=== PATIENT | male | born 1985 | race Caucasian/White ===

== ENCOUNTER 2016-12-25 10:32 | Observation (INO) ==
[2016-12-25] MEDS ORDERED: HYDROmorphone 2 MG/ML SYRINGE IV PRN (12:07)
[2016-12-25 12:59] LABS: Mean Cell Volume 89.8 fL (80.0-100.0); Mean Corpuscular Hemoglobin 30.5 pg (26.0-34.0); Platelet Count 204 K/mcL (140-440); RBC 4.85 M/mcL (4.50-5.90); Red Cell Distribution Width 13.4 % (11.5-14.5)
[2016-12-25] MEDS: 0.9 % SODIUM CHLORIDE 1,000 ML IV SCH ×2 (13:02→20:28)
[2016-12-25 13:24] LABS: ALT/SGPT 14 U/l (0-40); Albumin 4.2 gm/dL (3.2-5.2); Albumin/Globulin Ratio 2.3 (1.0-2.3); Alkaline Phosphatase 39 U/L (39-117); Bilirubin,Direct < 0.2 mg/dL (0.0-0.3); Blood Urea Nitrogen 7 mg/dl (6-20); C-Reactive Protein < 0.3 mg/dl (0.0-0.8); Gamma Glutamyl Transpeptidase 16 U/L (8-61); Magnesium 1.9 mg/dL (1.6-2.5); Uric Acid 3.8 mg/dL (2.5-8.0)
[2016-12-25 13:37] LABS: Lymphocytes % 33 % (15-49); Monocytes % (Manual) 3 % (1-12); Platelet Estimate NORMAL (NORMAL); RBC Morphology NORMAL (NORMAL); Segmented Neutrophils % 62 % (38-78)
[2016-12-25] MEDS: 0.9 % SODIUM CHLORIDE 10 ML SYRINGE IV SCH ×2 (15:53→20:33)
[2016-12-25] MEDS: PANTOPRAZOLE 40 MG VIAL IV SCH (16:27)
[2016-12-25] MEDS: METOCLOPRAMIDE 10 MG/2 ML VIAL IV SCH ×2 (18:59→23:00)
[2016-12-25] MEDS: SUCRALFATE 1 GM/10 ML ORAL.SUSP PO SCH ×2 (18:59→23:00)
[2016-12-26] MEDS: 0.9 % SODIUM CHLORIDE 1,000 ML IV SCH ×4 (02:38→15:08)
[2016-12-26] MEDS: SUCRALFATE 1 GM/10 ML ORAL.SUSP PO SCH ×3 (05:55→17:57)
[2016-12-26] MEDS: METOCLOPRAMIDE 10 MG/2 ML VIAL IV SCH ×3 (05:55→17:57)
[2016-12-26] MEDS: 0.9 % SODIUM CHLORIDE 10 ML SYRINGE IV SCH ×3 (05:56→21:11)
[2016-12-26] MEDS ORDERED: MIDAZOLAM 5 MG/5 ML VIAL IV ONE (07:07)
[2016-12-26] MEDS ORDERED: FLUMAZENIL 0.1 MG/ML ML IV PRN (07:22)
[2016-12-26] MEDS ORDERED: METOCLOPRAMIDE 10 MG/2 ML VIAL IV PRN (07:22)
[2016-12-26] MEDS ORDERED: ePHEDrine 50 MG/ML AMPUL IV PRN (07:22)
[2016-12-26] MEDS ORDERED: IPRATROPIUM/ALBUTEROL 3 ML AMPUL.NEB NEB PRN (07:22)
[2016-12-26] MEDS ORDERED: NALOXONE HCL 0.4 MG/ML VIAL IV PRN (07:22)
[2016-12-26] MEDS ORDERED: ONDANSETRON 4 MG/2 ML VIAL IV PRN (07:22)
[2016-12-26] MEDS ORDERED: LACTATED RINGERS 250 ML IV PRN (07:22)
[2016-12-26] MEDS ORDERED: fentaNYL 100 MCG/2 ML VIAL IV PRN (07:22)
[2016-12-26] MEDS ORDERED: diphenhydrAMINE 50 MG/ML VIAL IV PRN (07:22)
--- NOTE | 2016-12-26 07:27 | Brief Operative Note ---
Date of procedure: 12/26/16 Pre-op diagnosis: recurrent nausea and vomiting Post-op diagnosis: other (acute gastritis with gastroparesis; esophageal monilial inflammation) Procedure: egd with biopsies and jamshid-test Grafts/Implants: No Anesthesia: MAC Findings: extreme lack of peristalsis of stomach with acute inflammation and erosions of stomach ;mild patch monilial esophagitis Complications: none Surgeon: Edy Rosen Estimated blood loss (cc): 0 Specimens Removed/Pathology: other (jamshid-test and gastric antral biopsies) Condition: stable Disposition: PACU
[2016-12-26] MEDS ORDERED: LACTATED RINGERS 1,000 ML IV SCH (07:30)
[2016-12-26] MEDS: PANTOPRAZOLE 40 MG VIAL IV SCH ×2 (08:09→16:39)
[2016-12-26] MEDS ORDERED: ENOXAPARIN 40 MG/0.4 ML SYRINGE SQ SCH (09:00)
[2016-12-26] MEDS: ENOXAPARIN 40 MG/0.4 ML SYRINGE SQ SCH (09:14)
[2016-12-26] MEDS: HYDROmorphone 2 MG/ML SYRINGE IV PRN ×2 (10:41→20:36)
[2016-12-27] MEDS: METOCLOPRAMIDE 10 MG/2 ML VIAL IV SCH ×3 (00:10→14:09)
[2016-12-27] MEDS: SUCRALFATE 1 GM/10 ML ORAL.SUSP PO SCH ×3 (00:10→14:09)
[2016-12-27] MEDS: 0.9 % SODIUM CHLORIDE 1,000 ML IV SCH ×3 (01:44→09:01)
[2016-12-27] MEDS: 0.9 % SODIUM CHLORIDE 10 ML SYRINGE IV SCH ×2 (05:52→14:10)
[2016-12-27] MEDS: PANTOPRAZOLE 40 MG VIAL IV SCH (08:04)
[2016-12-27] MEDS: ENOXAPARIN 40 MG/0.4 ML SYRINGE SQ SCH (10:32)
--- NOTE | 2016-12-27 13:27 | General Surgery Progress Note ---
Subjective Patient reports: feels better, pain is less, tolerating a regular diet, flatus, bowel movement, afebrile Narrative: Note initiated : 12/27/16 at 1:24 pm Service Date, if different from initiated Date: [] Patient: Pranav Gutierrez a 31 y/o M admitted on 12/25/16 for Intractable Nausea and Vomiting . Chief Complaint: [patient is progressing well. He has no nausea or vomiting. He has tolerated regular diet without difficulty. He has had regular bowel movements. He still has some abdominal pain but that is a chronic issue. He is stable for discharge home on his baseline medication regimen.] Objective Temp Pulse Resp BP Pulse Ox 99.6 F 60 20 117/76 98 12/27/16 12:00 12/27/16 12:00 12/27/16 12:00 12/27/16 12:00 12/27/16 12:00 - Additional Data Intake & Output - Last 24 hours: Intake & Output 12/25/16 12/26/16 12/27/16 12/28/16 05:59 05:59 05:59 05:59 Intake Total 2715 / 2715 3010 / 3010 Output Total 700 / 700 3275 / 3275 Balance 2014 -265 / -265 Weight 138 lb 138 lb 8 oz - General physical appearance no distress - Eyes PERRL - ENT no congestion - Neck no venous distension - Respiratory clear to auscultation - Cardiovascular Cardiovascular exam: Present: normal rate and rhythm, RRR, +S1, +S2 - Abdomen tender (epigastric tenderness) - Integumentary no rash, no growths, no abnormal pigmentation - Neurologic normal coordination, normal sensation - Musculoskeletal normal gait, normal posture - Psychiatric oriented to time - Labs 12/25/16 12:22 12/25/16 12:22 Assessment and Plan (1) Acute gastritis Status: Acute Assessment and plan: Will follow-up H pylori as an outpatient stable for discharge home Current Visit: Yes (2) Nausea and vomiting Status: Acute Assessment and plan: resume all home medications Current Visit: No (3) Gastroparesis Status: Chronic Current Visit: No - Time Spent With Patient Total time spent is greater than 50% in coordination of care (as documented) at patient's floor/unit and/or counseling patient: less than 15 minutes
--- NOTE | 2016-12-27 13:34 | Discharge Summary ---
Providers - Providers Patient information: Note initiated : 12/27/16 at 1:30 pm Service Date, if different from initiated Date: [] Patient: Pranav Gutierrez 31 y/o M admitted on 12/25/16 for Intractable Nausea and Vomiting . Chief Complaint: [] Date of admission: 12/25/16 Discharge date: 12/27/16 Attending physician: Edy Rosen Hospitalization Hospital course: Patient presented with a five-day history of abdominal pain with recurrent nausea and vomiting. He had 3 evaluations in the emergency room during this time. He continued to have nausea and vomiting despite treatment and could not keep down his medications. He was admitted for IV therapy including his IV medications and for upper endoscopy. After hydration and receiving IV Reglan and Zofran and pantoprazole he was much improved. He underwent upper endoscopy which showed that he had persistent gastroparesis but his stomach was clear of bezoar. He did have erosive gastritis in the antrum with evidence of superficial active bleeding. He was treated for another 24 hours and is now stable. He states that he has mild epigastric pain but he is able to tolerate a regula diet. He will be discharged on te same medications and he is advised to not run out of his medications. He will be followed in the office on an as- need basis. Discharge diagnosis: acute and chronic erosive gastrits Secondary discharge diagnosis: idiopathic gastroparesis Reason for admission: recurrent nausea andvomiting Procedures: upper endoscopy Complications: none Exam Temp Pulse Resp BP Pulse Ox 99.6 F 60 20 117/76 98 12/27/16 12:00 12/27/16 12:00 12/27/16 12:00 12/27/16 12:00 12/27/16 12:00 - General physical appearance well developed, well nourished, no distress - Eyes PERRL, normal ocular movement - ENT normal pinna, normal nares, normal mucosa, no hearing loss, no congestion - Head Head exam IM: Present: atraumatic, normocephalic - Neck no masses, no bruits, trachea midline, no lymphadectomy, no venous distension - Cardiovascular Cardiovascular exam IM: Present: normal rate and rhythm - Respiratory normal expansion, normal respiratory effort, clear to percussion, clear to auscultation - Abdomen Abdomen: Present: soft, tender (mild epigastric t), bowel sounds Hernia: Present: none - Integumentary Present: no rash, no growths, no abnormal pigmentation - Neurologic Present: normal coordination, normal sensation - Musculoskeletal Present: normal gait, normal posture - Psychiatric Present: oriented to time, oriented to person, oriented to place, speech is normal, memory intact Discharge Plan - Patient/Caregiver Discharge Instructions Activity: increase activity as tolerated Diet: Regular Diet Additional Instructions: office follow-up as an outpatient as needed - Follow up Plan Follow up with: Edy Rosen MD [Primary Care Provider] - Disposition: Home, Self-Care Prognosis: Good Rehab Potential: Good I certify that the patient requires SNF services.: No Overall status at discharge: patient is back to baseline Pending Studies Resuscitation Status Full Code Diet Regular Diet Start SatDecember 26 Lunch Enoxaparin Sodium (Lovenox) 40 mg SQ DAILY [facility] Last Admin: 12/27/16 10:32 Dose: Not Given Admin: 12/26/16 09:14 Dose: 40 mg Hydromorphone HCl (Dilaudid) 1 mg IV Q2HP PRN PRN Reason: Pain Last Admin: 12/26/16 20:36 Dose: 1 mg Admin: 12/26/16 10:41 Dose: 1 mg Sodium Chloride (Sodium Chloride 0.9%) 1,000 mls @ 150 mls/hr IV .Q6H40M [facility] Last Admin: 12/27/16 09:01 Dose: Admin: 12/27/16 05:51 Dose: Not Given Admin: 12/27/16 01:44 Dose: 150 mls/hr Infusion: 12/26/16 16:11 Dose: 150 mls/hr Admin: 12/26/16 15:08 Dose: Not Given Admin: 12/26/16 09:30 Dose: 150 mls/hr Metoclopramide HCl (Reglan) 10 mg IV Q6 [facility] Last Admin: 12/27/16 05:51 Dose: 10 mg Admin: 12/27/16 00:10 Dose: 10 mg Admin: 12/26/16 17:57 Dose: 10 mg Admin: 12/26/16 11:48 Dose: 10 mg Pantoprazole Sodium (Protonix) 40 mg IV BIDAC [facility] Last Admin: 12/27/16 08:04 Dose: 40 mg Admin: 12/26/16 16:39 Dose: 40 mg Sodium Chloride (Saline Flush) 10 ml IV Q8 [facility] Last Admin: 12/27/16 05:52 Dose: Not Given Admin: 12/26/16 21:11 Dose: Not Given Admin: 12/26/16 13:12 Dose: Not Given Sucralfate (Carafate) 1 gm PO Q6 [facility] Last Admin: 12/27/16 05:51 Dose: 1 gm Admin: 12/27/16 00:10 Dose: 1 gm Admin: 12/26/16 17:57 Dose: 1 gm Admin: 12/26/16 11:48 Dose: 1 gm Shift Summary 12/27/16 04:19 Shift Summary by Ashley Erazo Patient had EGD performed yesterday that showed acute gastritis and gastroparesis with esophageal inflammation. H. pylori results should return within 24 hours. A&Ox4. VSS. Up ad desirae. Advanced to regular diet and is tolerating well. Denies Nausea. Administered IV Dilaudid 1mg at 2036 for 6/10 abdominal pain. Should discharge home today. Initialized on 12/27/16 04:19 - END OF NOTE
--- NOTE | 2016-12-28 12:39 | Surgical Pathology Report ---
HISTOLOGY SPECIMEN MICROSCOPIC DIAGNOSIS STOMACH, BIOPSY: -- MILD CHRONIC GASTRITIS WITH PATCHY SLIGHT ACTIVITY. (SEE COMMENT) -- ALCIAN YELLOW STAIN NEGATIVE FOR HELICOBACTER PYLORI TYPE ORGANISMS (ADEQUATE TECHNICAL CONTROL). (ACP:zak) COMMENT: The gastric biopsy has mild chronic inflammation with intact surface epithelium and few scattered foci of active inflammation. A chromogranin stain is negative for endocrine cell hyperplasia (adequate technical control). No neoplasia is seen. MICROSCOPIC DESCRIPTION Some of the tests reported here may not have been cleared or approved by the U.S. Food and Drug Administration (FDA). However, the FDA has determined that such clearance or approval is not necessary. Pursuant to the requirements of CLIA, this laboratory has established and verified the accuracy and precision of all tests, and additional information about these tests is available upon request. All technical controls are adequate. CLINICAL HISTORY Intractable nausea and vomiting. GROSS DESCRIPTION Received in formalin labeled gastric biopsy, are two pale pink-vargas tissue fragments 0.4 and 0.7 cm. Totally submitted - one cassette. (STM:[facility]) Electronically Signed by: Heriberto Bourne M.D.
--- NOTE | 2017-01-02 10:39 | Operative Note ---
DATE OF OPERATION: 12/26/2016 PREOPERATIVE DIAGNOSIS: Recurrent nausea and vomiting. POSTOPERATIVE DIAGNOSIS: Acute gastritis with gastroparesis, esophageal monilial infection. PROCEDURE: EGD with biopsies and CLOtest. SURGEON: Edy Rosen MD FINDINGS: Extreme lack of peristalsis of the stomach, acute inflammation and erosion of the distal stomach, mild patchy monilial esophagitis. DESCRIPTION OF PROCEDURE: Under general anesthesia, the patient was turned to the left lateral decubitus position. A timeout procedure was carried out as per protocol. A biteblock was placed. The scope was introduced through the biteblock and into the retropharynx. Upon entering the esophagus, there were thick plaques of white exudate extending down from the upper third of the esophagus down to the GE junction. There were some areas of inflammation. These plaques could be removed but under the plaque there was inflammation suggesting monilial esophagitis. There were tertiary contractions of the esophagus. The GE junction was unremarkable. There was no inflammation. The stomach was maximally insufflated. The proximal stomach was unremarkable except for lack of peristalsis. Distal stomach showed scattered erosions with diffuse inflammation extending down to the pylorus. The pylorus opened appropriately. The first, second, and third portions of the duodenum were normal. There were no . The scope was pulled back. Biopsies of the antral area were taken for CLOtest and for routine biopsy. Air was suctioned from the stomach and the stomach was monitored for about a minute or two. There were no peristaltic waves during this time. The rest of the air was removed. Procedure was terminated. Patient tolerated procedure well. He was allowed to awaken and was transferred to the Post-Anesthetic Care Unit in stable satisfactory condition. LCS:lesia Job ID: [id number] Doc ID: [id number] Edy Rosen M.D.
== END 2016-12-27 14:26 | disposition home or self-care (01) ==
LOC: MEDSUR
PROVIDERS: ADMIT Family Medicine Adult Medicine; ATTEND Family Medicine Adult Medicine

== ENCOUNTER 2017-02-05 10:07 | Observation (INO) ==
[2017-02-05] MEDS ORDERED: PROCHLORPERAZINE 10 MG/2 ML VIAL IV ONE (10:38)
[2017-02-05] MEDS ORDERED: LACTATED RINGERS 1,000 ML IV ONE (10:38)
[2017-02-05] MEDS ORDERED: diphenhydrAMINE 50 MG/ML VIAL IV ONE (10:38)
[2017-02-05] MEDS ORDERED: LORazepam 2 MG/ML VIAL IV ONE (10:45)
--- NOTE | 2017-02-05 11:07 | Emergency Department Note ---
Nausea/Vomiting/Diarrhea HPI - General Chief complaint: Nausea/Vomiting/Diarrhea Stated complaint: Abdominal pain, nausea and vomiting Time Seen by Provider: 02/05/17 10:44 Source: patient Mode of arrival: ambulatory Limitations: no limitations - History of Present Illness HPI Narrative: Patient here for the third day in a row with intractable vomiting and. He does use marijuana on a daily basis. States he tried to drink some fluids this morning and he promptly vomited it. No previous abdominal surgeries, states he has had EGD before in the past and was diagnosed as having gastroparesis. No fevers no chills no chest pain no shortness of breath and no cough no other symptoms. Denies any syncope. No history of any diarrhea and no black tarry stools. MD complaint: nausea, vomiting - Related Data Home Medications Medication Instructions Recorded Confirmed metoclopramide 10 mg tablet 10 mg PO .QACHS tab 01/10/17 02/05/17 omeprazole 20 mg capsule,delayed 20 mg PO QDAY cap 01/10/17 02/05/17 release Previous Rx's Medication Instructions Recorded dicyclomine 10 mg capsule 10 mg PO QID #120 cap 01/10/17 hydrocodone 5 mg-acetaminophen 325 1 tab PO Q4HP PRN #90 tab 01/10/17 mg tablet pantoprazole 40 mg tablet,delayed 40 mg PO QAM #30 tab 01/10/17 release Ondansetron HCl [Zofran ODT] 4 mg SL Q4-6HP PRN #14 tablet 02/04/17 Allergies Allergy/AdvReac Type Severity Reaction Status Date / Time No Known Allergies Allergy Unknown Unknown Verified 02/05/17 10:12 Review of Systems All systems ED: reviewed and negative except as stated. Past Medical History - Past Medical History Source: old records reviewed, nursing notes reviewed Medical history: Reports: other (pancreatitis, gastroparesis, depression,) Surgical history ED: Reports: non-contributory, other (upper endoscopy) Psychiatric history: Reports: depression Family history: Reports: no significant family history - Social History smoking status: Current some day smoker Alcohol use: Reports: None (history of heavy alcohol. Previous up to one year ago) Drug use: Reports: marijuana Physical Exam - General Limitations: no limitations General appearance: alert, in no apparent distress - Head Head exam: atraumatic, normocephalic - Eye Eye exam: Present: normal appearance, PERRL, EOMI. Absent: scleral icterus, conjunctival injection - ENT ENT exam: normal exam, normal oropharynx, mucous membranes moist - Neck Neck exam: Present: normal inspection, full ROM. Absent: tenderness, meningismus, lymphadenopathy, thyromegaly - Chest Chest inspection: Present: normal inspection, symmetric chest wall rise. Absent : tenderness - Respiratory Respiratory exam: Present: normal lung sounds bilaterally. Absent: respiratory distress, wheezes, stridor - Cardiovascular Cardiovascular exam: Present: regular rate, normal rhythm, normal heart sounds - Abdominal Exam Abdominal exam: Present: soft, diminished bowel sounds. Absent: distention, tenderness, guarding - Extremities Exam Extremities exam: Present: normal inspection, full ROM, normal capillary refill. Absent: pedal edema, joint swelling - Back Exam Back exam: Present: normal inspection, full ROM. Absent: tenderness, CVA tenderness (R), CVA tenderness (L) - Neurological Exam Neurological exam: Present: alert, oriented X3, CN II-XII intact - Psychiatric Psychiatric exam: Present: normal affect, normal mood. Absent: suicidal ideation - Skin Skin exam: Present: warm, dry, intact, normal color Course - Reevaluation(s) Reevaluation #1: we tried giving IV fluids, he received a total of 2 L, mul and despite all this he still vomited up Pedialyte. At this point he will be admittadmitted for intractable vomiting, gastroparesis Vital Signs Temperature 99.1 F H 02/05/17 10:07 Pulse Rate 68 02/05/17 10:07 Respiratory Rate 18 02/05/17 10:07 Blood Pressure 128/72 02/05/17 10:07 Pulse Oximetry (%) 98 02/05/17 10:07 Temperature 99.1 F H 02/05/17 10:07 Pulse Rate 93 H 02/05/17 13:34 Respiratory Rate 18 02/05/17 12:39 Blood Pressure 123/86 02/05/17 13:02 Pulse Oximetry (%) 97 02/05/17 13:34 Nausea/Vomiting/Diarrhea - [facility] Narrative Medical decision making narrative: final diagnosis is gastroparesis with intractable vomiting - Lab Data Result diagrams: 02/05/17 10:40 02/05/17 10:40 Lab Results 02/05/17 02/05/17 02/05/17 Range/Units 10:40 10:40 10:49 WBC 12.7 H (4.5-11.0) K/mcL RBC 4.62 (4.50-5.90) M/mcL Hgb 14.0 (13.5-16.5) g/dL Hct 41.4 (41.0-55.0) % MCV 89.6 (80.0-100.0) fL MCH 30.3 (26.0-34.0) pg MCHC 33.9 (31.0-36.0) g/dL RDW 13.6 (11.5-14.5) % Plt Count 176 (140-440) K/mcL MPV 9.3 (7.4-10.4) fL Gran % 80.4 H (38.0-78.0) % Lymph % (Auto) 10.4 L (15.5-49.0) % [place] % (Auto) 8.6 (1.0-12.0) % Eos % (Auto) 0.5 (0.0-7.0) % Baso % (Auto) 0.1 (0.0-2.0) % Gran # 10.2 H (1.8-8.0) K/mcL Lymph # (Auto) 1.3 L (1.5-4.8) K/mcL [place] # (Auto) 1.1 H (0.1-0.9) K/mcL Eos # (Auto) 0.1 (0.0-0.7) K/mcL Baso # (Auto) 0 (0.0-0.3) K/mcL ESR 4 (0-15) mm/hr Sodium 140 (133-145) mmol/L Potassium 3.2 L (3.3-5.1) mmol/L Chloride 99 (96-108) mmol/L Carbon Dioxide 27 (22-30) mmol/L Anion Gap 14.0 (8-16) BUN 7 (6-20) mg/dl Creatinine 0.7 (0.7-1.2) mg/dl GFR Calculation 124 Glucose 115 H (70-105) mg/dL Calcium 9.0 (8.6-10.4) mg/dl Total Bilirubin 0.6 (0.0-1.0) mg/dL AST 16 (0-37) U/l ALT 15 (0-40) U/l Alkaline Phosphatase 42 (39-117) U/L C-Reactive Protein < 0.3 (0.0-0.8) mg/dl Total Protein 6.1 (5.9-8.4) gm/dL Albumin 4.5 (3.2-5.2) gm/dL Globulin 1.6 L (2.2-3.7) gm/dL Albumin/Globulin Ratio 2.8 H (1.0-2.3) Lipase 104 H (7-60) U/L Urine Color Yellow Urine Appearance Hazy Urine pH 8.0 (5.0-9.0) Ur Specific [place] 1.018 (1.000-1.035) Urine Protein 30 A (NEG) mg/dL Urine Glucose (UA) Negative (NEG) mg/dL Urine Ketones 80 A (NEG) mg/dL Urine Occult Blood Neg (<0.03) mg/dL Urine Nitrate Neg (NEG) Urine Bilirubin Neg (NEG) mg/dL Urine Urobilinogen Neg (NEG) mg/dL Ur Leukocyte Esterase Neg (NEG) /uL Urine RBC 1 (0-1) /hpf Urine WBC 2 (0-4) /hpf Ur Squamous Epith Cells 0 (0-4) /hpf Amorphous Crystals Many A (0) /hpf Urine Bacteria 0 (0) /hpf Hyaline Casts 1 (0-2) /lpf Urine Mucus Mod (0) /hpf Ur Culture Indicated? No Disposition Clinical Impression: Intractable nausea and vomiting
[2017-02-05] MEDS ORDERED: PANTOPRAZOLE 40 MG VIAL IV ONE (11:08)
[2017-02-05] MEDS ORDERED: ELECTROLYTE,ORAL 1,000 ML SOLUTION PO ONE ×2 (11:10→11:15)
[2017-02-05 11:21] LABS: Basophils # (Auto) 0 K/mcL (0.0-0.3); Basophils % (Auto) 0.1 % (0.0-2.0); Eosinophils # (Auto) 0.1 K/mcL (0.0-0.7); Eosinophils % (Auto) 0.5 % (0.0-7.0); Granulocytes % (Auto) 80.4 % (38.0-78.0); Lymphocytes # (Auto) 1.3 K/mcL (1.5-4.8); Lymphocytes % (Auto) 10.4 % (15.5-49.0); Mean Cell Volume 89.6 fL (80.0-100.0); Mean Corpuscular HGB Conc 33.9 g/dL (31.0-36.0); Mean Corpuscular Hemoglobin 30.3 pg (26.0-34.0); Monocytes # (Auto) 1.1 K/mcL (0.1-0.9); Monocytes % (Auto) 8.6 % (1.0-12.0); Platelet Count 176 K/mcL (140-440); RBC 4.62 M/mcL (4.50-5.90); Red Cell Distribution Width 13.6 % (11.5-14.5)
[2017-02-05 11:26] LABS: Appearance,Urine HAZY; Bacteria,Urine 0 /hpf (0); Bilirubin,Urine NEG (NEG); Color,Urine YELLOW; Glucose,Urine (UA) NEGATIVE (NEG); Leukocyte Esterase,Urine NEG /uL (NEG); Mucus,Urine MOD /hpf (0); Nitrate,Urine NEG (NEG); Protein,Urine 30 mg/dL (NEG); Specific Gravity,Urine 1.018 (1.000-1.035); Urine Amorphous Crystals MANY /hpf (0); Urine Blood NEG mg/dL (<0.03); Urine Hyaline Cast 1 /lpf (0-2); Urine RBC 1 /hpf (0-1); Urine Squamous Epithelial Cell 0 /hpf (0-4); Urine WBC 2 /hpf (0-4); Urobilinogen,Urine NEG (NEG)
[2017-02-05 11:54] LABS: ALT/SGPT 15 U/l (0-40); Albumin 4.5 gm/dL (3.2-5.2); Albumin/Globulin Ratio 2.8 (1.0-2.3); Alkaline Phosphatase 42 U/L (39-117); Blood Urea Nitrogen 7 mg/dl (6-20); C-Reactive Protein < 0.3 mg/dl (0.0-0.8); Lipase 104 U/L (7-60)
[2017-02-05 12:14] LABS: Erythrocyte Sedimentation Rate 4 mm/hr (0-15)
[2017-02-05] MEDS ORDERED: POTASSIUM CHLORIDE 20 MEQ/15 ML ML PO ONE (12:29)
[2017-02-05] MEDS ORDERED: METOCLOPRAMIDE 10 MG/2 ML VIAL IV ONE (13:31)
--- NOTE | 2017-02-05 14:56 | Internal Med History&Physical ---
Medical - H&P: HPI Patient information: Note initiated : 02/05/17 at 2:48 pm Patient: Pranav Gutierrez 31 y/o M admitted on for Abd Pain, N/V. History of present illness: Mr. Gutierrez is a 31 year old M This patient has a history of gastroparesis and significant gastritis. He has been admitted several times for intractable nausea and vomiting. He tells me that the first severe episode he recalls was September last year. This week, he has had persistent nausea and vomiting for the last several days. He has come to the emergency room 4 times, and just has not been able to control his symptoms. He also reports abdominal pain which she rates as 8 out of 10. He does have Reglan and Zofran and dicyclomine and Protonix at home, as well as [place], but these did not seem to manage his symptoms. He does admit to smoking about 2 joints per day, which she uses both for recreation and to help with nausea. He has not been able to keep any food down for the last 3 days. When he vomits, mostly bilious fluid comes up. He has not seen any blood. His throat is been a little dry, but no significant pain. He denies fever chills, headaches or dizziness, new or ear symptoms, swollen glands, chest pain or palpitations, shortness of breath. He has not had a bowel movement in several days, but also has not eaten. He denies diarrhea or bright red blood per rectum, or dysuria. Medical History Abdominal pain (Acute) Acute gastritis (Acute) Gastroparesis (Acute) Pancreatitis ? Depression (Chronic) Chronic tobacco and marijuana use Surgical History No pertinent past surgical history (Chronic) Medication List dicyclomine 10 mg PO QID hydrocodone-acetaminophen 5-325 mg 1 tab PO Q4HP PRN metoclopramide 10 mg PO .QACHS omeprazole 20 mg PO QDAY ondansetron 4 mg SL Q4-6HP PRN pantoprazole 40 mg PO QAMAC Allergies/Adverse Reactions No Known Allergies Allergy Family History Family/Other ? Uncle at age 60+ ? Cancer. Father's health is unknown. His mother had gallbladder surgery. A grandfather had esophageal cancer late in life. Grandfather , at age 60+ Esophageal cancer Other Heart disease Social History The patient smokes about half a pack of cigarettes per day, since the age of 12. He smokes approximately 2 joints of marijuana per day. He previously says he drank fairly heavily, but stopped about 18 months ago. He works in a restaurant. He is currently staying with his aunt. Medical - H&P: Meds Home Medications Medication Instructions Recorded Confirmed Type dicyclomine 10 mg capsule 10 mg PO QID #120 cap 01/10/17 02/05/17 Rx hydrocodone 5 mg-acetaminophen 325 1 tab PO Q4HP PRN #90 tab 01/10/17 02/05/17 Rx mg tablet metoclopramide 10 mg tablet 10 mg PO .QACHS tab 01/10/17 02/05/17 History omeprazole 20 mg capsule,delayed 20 mg PO QDAY cap 01/10/17 02/05/17 History release pantoprazole 40 mg tablet,delayed 40 mg PO QAM #30 tab 01/10/17 02/05/17 Rx release Ondansetron HCl [Zofran ODT] 4 mg SL Q4-6HP PRN #14 tablet 02/04/17 02/05/17 Rx Allergies Allergy/AdvReac Type Severity Reaction Status Date / Time No Known Allergies Allergy Unknown Unknown Verified 02/05/17 10:12 Medical - H&P: Exam - Constitutional Vitals: Temp Pulse Resp BP Pulse Ox 99.1 F H 93 H 18 123/86 97 02/05/17 10:07 02/05/17 13:34 02/05/17 12:39 02/05/17 13:02 02/05/17 13:34 On physical exam, he is a well-developed well-nourished, slender male, in no acute distress. Mood and affect appear normal. Head: Normocephalic, atraumatic. Ears: Are obstructed with a moderate amount of cerumen, bilaterally. Eyes: PERRLA, EOMI, anicteric. Pharynx: Is clear. Teeth are in good repair. Mucosa appears normal. Neck: Is supple, without lymphadenopathy, JVD, thyromegaly, bruits. Cardiac exam: Shows regular rate and rhythm, with normal S1 and S2, without murmurs, rubs, gallops. Lungs: Are clear to auscultation, without rales, rhonchi, wheezes. Abdomen: Is soft without guarding or rebound. Bowel sounds are active. There is mild to moderate tenderness with palpation, and this is fairly diffuse. Extremities: Show no cyanosis, clubbing, edema. He does have numerous tattoos. Neurologic: Is grossly nonfocal. Medical - H&P: Reslt - Labs CBC & Chem 7: 02/05/17 10:40 02/05/17 10:40 Labs: Short CBC 02/05/17 Range/Units 10:40 WBC 12.7 H (4.5-11.0) K/mcL Hgb 14.0 (13.5-16.5) g/dL Hct 41.4 (41.0-55.0) % Plt Count 176 (140-440) K/mcL BMP 02/05/17 10:40 Sodium 140 Potassium 3.2 L Chloride 99 Carbon Dioxide 27 BUN 7 Creatinine 0.7 Glucose 115 H Calcium 9.0 Liver Function 02/05/17 Range/Units 10:40 Total Bilirubin 0.6 (0.0-1.0) mg/dL AST 16 (0-37) U/l ALT 15 (0-40) U/l Alkaline Phosphatase 42 (39-117) U/L Albumin 4.5 (3.2-5.2) gm/dL Urine 02/05/17 Range/Units 10:49 Urine Color Yellow Urine Appearance Hazy Urine pH 8.0 (5.0-9.0) Ur Specific [place] 1.018 (1.000-1.035) Urine Protein 30 A (NEG) mg/dL Urine Glucose (UA) Negative (NEG) mg/dL Medical - H&P: A/P (1) Tetrahydrocannabinol (THC) use disorder, mild, abuse Current visit: Yes Status: Chronic (2) Tobacco abuse Current visit: Yes Status: Chronic (3) Hypokalemia, gastrointestinal losses Current visit: Yes Status: Acute (4) Gastroparesis Current visit: No Status: Chronic (5) Acute gastritis Current visit: No Status: Chronic (6) Intractable nausea and vomiting Current visit: Yes Status: Acute - Narrative A/P Narrative: #1. GI. This patient presents to the emergency room for the fourth time in 3 days, for intractable nausea and vomiting. He just cannot hold anything down. He has known gastroparesis, and was recently diagnosed with significant gastritis as well. He is at high risk for dehydration. -Admit for IV fluids and observation. -Check abdominal x-ray to rule out acute findings. -IV Zofran, Reglan, Phenergan as needed. Consider IV Ativan for nausea, if there is also a component of anxiety. -Consider cannabis hyperemesis syndrome. -Consider referral to GI, if this is not been done in the past. -Clear liquid diet, advance as tolerated. 2. Renal. Hypokalemia, likely due to vomiting. - Replace IV. Monitor. 3. CODE STATUS: Full code 4. History of both tobacco and marijuana use. -NicoDerm patch. -We discussed cannabis hyperemesis syndrome, and the patient says he will consider stopping marijuana to see if that is helpful. 5. DVT prophylaxis: Patient should be low risk, and should continue to ambulate in his room. #6. Fever. Patient does present with mildly elevated temperature and white blood cell count. Continue to monitor. Approximately 50 minutes was spent today, reviewing the patient's old records, reviewing his case with the ER MD, interviewing and examining him, and writing orders.
[2017-02-05] MEDS ORDERED: NALOXONE HCL 0.4 MG/ML VIAL IV PRN (15:29)
[2017-02-05] MEDS ORDERED: ACETAMINOPHEN 325 MG TABLET PO PRN (15:29)
[2017-02-05] MEDS ORDERED: POTASSIUM CHLORIDE 40 MEQ in DEXTROSE 5%-1/2NS 1,000 ML IV SCH (15:29)
[2017-02-05] MEDS ORDERED: POTASSIUM CHLORIDE 40 MEQ in DEXTROSE 5% IN WATER 500 ML IV ONE (16:00)
--- NOTE | 2017-02-05 16:37 | XRay Report ---
CLINICAL INFORMATION: Abdominal pain and vomiting COMPARISON: 12/24/2016 FINDINGS: The stool gas pattern is unremarkable. There is no free air, abnormal soft tissue mass, organomegaly or pathologic calcification. IMPRESSION: Negative Interpreted and Authenticated by: Parminder Van 02/05/17
[2017-02-05] MEDS: NICOTINE 7 MG PATCH TOPICAL SCH (17:42)
[2017-02-05] MEDS: METOCLOPRAMIDE 10 MG/2 ML VIAL IV SCH ×2 (17:42→20:47)
[2017-02-05] MEDS: DICYCLOMINE 20 MG TABLET PO SCH (20:48)
[2017-02-05] MEDS: ONDANSETRON 4 MG/2 ML VIAL IV PRN (21:31)
[2017-02-05] MEDS: DEXTROSE 5%-1/2NS W/40MEQ KCL 1,000 ML IV SCH (21:32)
[2017-02-05] MEDS: 0.9 % SODIUM CHLORIDE 10 ML SYRINGE IV SCH (22:21)
[2017-02-06] MEDS: PROMETHAZINE 25 MG/ML VIAL IV PRN (02:40)
[2017-02-06] MEDS: 0.9 % SODIUM CHLORIDE 10 ML SYRINGE IV SCH ×3 (05:08→20:47)
[2017-02-06] MEDS: DEXTROSE 5%-1/2NS W/40MEQ KCL 1,000 ML IV SCH ×5 (05:27→21:38)
[2017-02-06 05:34] LABS: Basophils # (Auto) 0 K/mcL (0.0-0.3); Basophils % (Auto) 0.3 % (0.0-2.0); Eosinophils # (Auto) 0 K/mcL (0.0-0.7); Eosinophils % (Auto) 0.4 % (0.0-7.0); Granulocytes % (Auto) 72.4 % (38.0-78.0); Lymphocytes # (Auto) 1.8 K/mcL (1.5-4.8); Lymphocytes % (Auto) 17.4 % (15.5-49.0); Mean Cell Volume 90.8 fL (80.0-100.0); Mean Corpuscular HGB Conc 33.9 g/dL (31.0-36.0); Mean Corpuscular Hemoglobin 30.8 pg (26.0-34.0); Monocytes % (Auto) 9.5 % (1.0-12.0); Platelet Count 178 K/mcL (140-440); RBC 4.64 M/mcL (4.50-5.90); Red Cell Distribution Width 13.4 % (11.5-14.5)
[2017-02-06 06:44] LABS: ALT/SGPT 17 U/l (0-40); Albumin 4.2 gm/dL (3.2-5.2); Albumin/Globulin Ratio 2.3 (1.0-2.3); Alkaline Phosphatase 41 U/L (39-117); Bilirubin,Direct < 0.2 mg/dL (0.0-0.3); Blood Urea Nitrogen 4 mg/dl (6-20); Gamma Glutamyl Transpeptidase 18 U/L (8-61); Magnesium 1.8 mg/dL (1.6-2.5); Uric Acid 2.9 mg/dL (2.5-8.0)
[2017-02-06] MEDS: PANTOPRAZOLE 40 MG VIAL IV SCH (06:57)
[2017-02-06] MEDS: METOCLOPRAMIDE 10 MG/2 ML VIAL IV SCH ×4 (06:57→20:47)
[2017-02-06] MEDS: NICOTINE 7 MG PATCH TOPICAL SCH (10:04)
[2017-02-06] MEDS: DICYCLOMINE 20 MG TABLET PO SCH ×4 (10:04→20:46)
[2017-02-06] MEDS: ONDANSETRON 4 MG/2 ML VIAL IV PRN (10:24)
--- NOTE | 2017-02-06 12:02 | Internal Med Progress Note ---
Medical - PN: Subj Patient information: Note initiated : 02/06/17 at 12:02 pm Patient: Pranav Gutierrez 31 y/o M admitted on 02/05/17 for Abd Pain, Intractable Nausea and Vomiting. Interval history: February 05, 2017: History of present illness: Mr. Gutierrez is a 31 year old man. This patient has a history of gastroparesis and significant gastritis. He has been admitted several times for intractable nausea and vomiting. He tells me that the first severe episode he recalls was September last year. This week, he has had persistent nausea and vomiting for the last several days. He has come to the emergency room 4 times, and just has not been able to control his symptoms. He also reports abdominal pain which she rates as 8 out of 10. He does have Reglan and Zofran and dicyclomine and Protonix at home, as well as [place], but these did not seem to manage his symptoms. He does admit to smoking about 2 joints per day, which he uses both for recreation and to help with nausea. He has not been able to keep any food down for the last 3 days. When he vomits, mostly bilious fluid comes up. He has not seen any blood. His throat is been a little dry, but no significant pain. He denies fever chills, headaches or dizziness, new or ear symptoms, swollen glands, chest pain or palpitations, shortness of breath. He has not had a bowel movement in several days, but also has not eaten. He denies diarrhea or bright red blood per rectum, or dysuria. February 06: This morning, the patient is still feeling poorly. He reports continued abdominal pain, radiating into his back has continued nausea, although he had not vomited this morning. He did tolerate a full liquid diet last evening. He otherwise denies fever or chills, chest pain or shortness of breath. He is having some nausea. He denies dysuria or vomiting. - Constitutional Vitals: Vital Signs Temp Pulse Resp BP Pulse Ox 96.6 F L 52 L 12 114/74 97 02/06/17 07:26 02/06/17 07:00 02/06/17 07:26 02/06/17 07:26 02/06/17 07:26 Period Temp Pulse Resp BP Sys/Choi Pulse Ox Last 24 Hr 96.6 F-98.7 F 50-53 12-16 114-149/72-89 95-98 Intake and Output 02/05/17 02/06/17 02/06/17 21:59 05:59 13:59 Intake Total 340 / 340 1240 / 1240 Output Total 300 / 300 1900 / 1900 650 / 650 Balance 40 / 40 -660 / -660 -650 / -650 Weight 140 lb Intake & Output: Intake & Output 02/05/17 02/06/17 02/06/17 21:59 05:59 13:59 Intake Total 340 / 340 1240 / 1240 Output Total 300 / 300 1900 / 1900 650 / 650 Balance 40 / 40 -660 / -660 -650 / -650 Weight 140 lb Intake: IV 990 / 990 Dextrose 5%-1/2Ns W/40Meq 990 / 990 KCl 1,000 ml @ 125 mls/ hr IV Q8H [facility] Rx#: [id number] Oral 340 / 340 250 / 250 Output: Void Amount 300 / 300 1900 / 1900 650 / 650 Other: Meal Dinner Percent of Meal Consumed 100% Feeding Ability Independent # Voids 1 2 On exam, he appears groggy. He is otherwise in no acute distress. Neck is supple without obvious JVD or lymphadenopathy. Cardiac exam shows regular rate and rhythm. Lungs are clear to auscultation. Abdomen: Is soft, but diffusely tender, without guarding or rebound. Bowel sounds are active. Extremities show no edema. Neurologic exam is grossly nonfocal. Medical - PN: Obj Da - Labs CBC & Chem 7: 02/06/17 04:40 02/06/17 04:40 Labs: Abnormal Lab Results 02/06/17 02/06/17 04:40 04:40 [place] # (Auto) 1.0 H BUN 4 L Glucose 138 H Phosphorus 2.1 L Globulin 1.8 L February 05: Urinalysis shows 30 mg of protein, 80 ketones, many amorphous crystals Abdominal x-ray was read as normal. Meds: Medications Acetaminophen (Tylenol) 650 mg PO Q6HP PRN PRN Reason: PAIN/FEVER > 101 Dicyclomine HCl (Dicyclomine) 10 mg PO QID [facility] Last Admin: 02/06/17 10:04 Dose: 10 mg Potassium Chloride/Dextrose/Sod Cl (Dextrose 5%-1/2ns W/40meq Kcl) 1,000 mls @ 125 mls/hr IV Q8H [facility] Last Admin: 02/06/17 10:26 Dose: Not Given Metoclopramide HCl (Reglan) 5 mg IV ACHS [facility] Last Admin: 02/06/17 11:25 Dose: 5 mg Morphine Sulfate (Morphine) 2 mg IV Q4HP PRN PRN Reason: Pain Last Admin: 02/06/17 10:24 Dose: 2 mg Naloxone HCl (Narcan) 0.1 mg IV Q2MIN PRN PRN Reason: Opiate Reversal Nicotine (Nicoderm) 7 mg TOPICAL DAILY@1000 [facility] Last Admin: 02/06/17 10:04 Dose: 7 mg Ondansetron HCl (Zofran) 4 mg IV Q4HP PRN PRN Reason: Nausea And Vomiting Last Admin: 02/06/17 10:24 Dose: 4 mg Pantoprazole Sodium (Protonix) 40 mg IV QAMAC [facility] Last Admin: 02/06/17 06:57 Dose: 40 mg Promethazine HCl (Phenergan) 12.5 mg IV Q6HP PRN PRN Reason: Nausea And Vomiting Last Admin: 02/06/17 02:40 Dose: 12.5 mg Sodium Chloride (Saline Flush) 10 ml IV Q8 [facility] Last Admin: 02/06/17 05:08 Dose: Not Given Medical - PN: A/P - Time Spent With Patient Total time spent is greater than 50% in coordination of care (as documented) at patient's floor/unit and/or counseling patient: 15 - 24 minutes (1) Tetrahydrocannabinol (THC) use disorder, mild, abuse Status: Chronic Current Visit: Yes (2) Tobacco abuse Status: Chronic Current Visit: Yes (3) Hypokalemia, gastrointestinal losses Status: Acute Current Visit: Yes (4) Gastroparesis Status: Chronic Current Visit: No (5) Acute gastritis Status: Chronic Current Visit: No (6) Intractable nausea and vomiting Status: Acute Current Visit: Yes - Narrative A/P Narrative: #1. GI. This patient presents to the emergency room for the fourth time in 3 days, for intractable nausea and vomiting. He just cannot hold anything down. He has known gastroparesis, and was recently diagnosed with significant gastritis as well. He is at high risk for dehydration. -Admited for IV fluids and observation. The patient continues to have significant nausea. Diet is slowly being advanced. He tells me he did have several studies done over at [facility], including abdominal CT, as well as several visits with Dr. Rosen, and upper endoscopy, all pointing to his current diagnosis of gastroparesis. -IV Zofran, Reglan, Phenergan as needed. Consider IV Ativan for nausea, if there is also a component of anxiety. -Consider cannabis hyperemesis syndrome. We discussed this, and he seems willing to consider staying away from marijuana for the time being, to see if this is contributing to his hyperemesis syndrome. -Consider referral to GI, if this is not been done in the past. -Clear liquid diet, advance as tolerated. 2. Renal. Hypokalemia, likely due to vomiting. Resolved. 3. CODE STATUS: Full code 4. History of both tobacco and marijuana use. -NicoDerm patch. -We discussed cannabis hyperemesis syndrome, and the patient says he will consider stopping marijuana to see if that is helpful. 5. DVT prophylaxis: Patient should be low risk, and should continue to ambulate in his room. #6. Fever. Patient does present with mildly elevated temperature and white blood cell count. These have resolved. Medical - PN: Qual - VTE Deep Vein Thrombosis/Pulmonary Embolism Present on Admission: No
[2017-02-07] MEDS: DEXTROSE 5%-1/2NS W/40MEQ KCL 1,000 ML IV SCH ×4 (05:11→22:28)
[2017-02-07] MEDS: 0.9 % SODIUM CHLORIDE 10 ML SYRINGE IV SCH ×2 (05:15→14:22)
[2017-02-07 06:10] LABS: Basophils # (Auto) 0 K/mcL (0.0-0.3); Basophils % (Auto) 0.4 % (0.0-2.0); Eosinophils # (Auto) 0.1 K/mcL (0.0-0.7); Eosinophils % (Auto) 1.4 % (0.0-7.0); Granulocytes % (Auto) 57.6 % (38.0-78.0); Lymphocytes # (Auto) 2.6 K/mcL (1.5-4.8); Lymphocytes % (Auto) 30.3 % (15.5-49.0); Mean Cell Volume 90.8 fL (80.0-100.0); Mean Corpuscular HGB Conc 33.8 g/dL (31.0-36.0); Mean Corpuscular Hemoglobin 30.7 pg (26.0-34.0); Monocytes # (Auto) 0.9 K/mcL (0.1-0.9); Monocytes % (Auto) 10.3 % (1.0-12.0); Platelet Count 182 K/mcL (140-440); RBC 4.94 M/mcL (4.50-5.90); Red Cell Distribution Width 13.2 % (11.5-14.5)
[2017-02-07 06:30] LABS: ALT/SGPT 115 U/l (0-40); Albumin 4.4 gm/dL (3.2-5.2); Albumin/Globulin Ratio 2.6 (1.0-2.3); Alkaline Phosphatase 45 U/L (39-117); Bilirubin,Direct < 0.2 mg/dL (0.0-0.3); Blood Urea Nitrogen 4 mg/dl (6-20); Gamma Glutamyl Transpeptidase 43 U/L (8-61); Magnesium 1.8 mg/dL (1.6-2.5); Uric Acid 2.8 mg/dL (2.5-8.0)
[2017-02-07] MEDS: PANTOPRAZOLE 40 MG VIAL IV SCH (07:16)
[2017-02-07] MEDS: METOCLOPRAMIDE 10 MG/2 ML VIAL IV SCH ×4 (07:16→22:28)
[2017-02-07] MEDS: DICYCLOMINE 20 MG TABLET PO SCH ×4 (09:04→22:27)
[2017-02-07 09:14] LABS: Lipase 150 U/L (7-60)
[2017-02-07] MEDS: ONDANSETRON 4 MG/2 ML VIAL IV PRN ×2 (09:28→20:02)
[2017-02-07 09:33] LABS: Hepatitis A Antibody IgM NON REACTIVE (NEGATIVE); Hepatitis B Core IgM NON REACTIVE (NEGATIVE); Hepatitis B Surface Antigen NEGATIVE (NEGATIVE); Hepatitis C Virus Antibody NON REACTIVE (NEGATIVE)
[2017-02-07] MEDS: NICOTINE 7 MG PATCH TOPICAL SCH (10:13)
[2017-02-07] MEDS: PROMETHAZINE 25 MG/ML VIAL IV PRN (12:41)
--- NOTE | 2017-02-07 21:24 | Internal Med Progress Note ---
Medical - PN: Subj Patient information: Note initiated : 02/07/17 at 9:10 pm Service Date, if different from initiated Date: [] Patient: Pranav Gutierrez a 31 y/o M admitted on 02/05/17 for Abd Pain, Intractable Nausea and Vomiting. Chief Complaint: [] Interval history: February 05, 2017: History of present illness: Mr. Gutierrez is a 31 year old man. This patient has a history of gastroparesis and significant gastritis. He has been admitted several times for intractable nausea and vomiting. He tells me that the first severe episode he recalls was September last year. This week, he has had persistent nausea and vomiting for the last several days. He has come to the emergency room 4 times, and just has not been able to control his symptoms. He also reports abdominal pain which she rates as 8 out of 10. He does have Reglan and Zofran and dicyclomine and Protonix at home, as well as [place], but these did not seem to manage his symptoms. He does admit to smoking about 2 joints per day, which he uses both for recreation and to help with nausea. He has not been able to keep any food down for the last 3 days. When he vomits, mostly bilious fluid comes up. He has not seen any blood. His throat is been a little dry, but no significant pain. He denies fever chills, headaches or dizziness, new or ear symptoms, swollen glands, chest pain or palpitations, shortness of breath. He has not had a bowel movement in several days, but also has not eaten. He denies diarrhea or bright red blood per rectum, or dysuria. February 06: This morning, the patient is still feeling poorly. He reports continued abdominal pain, radiating into his back has continued nausea, although he had not vomited this morning. He did tolerate a full liquid diet last evening. He otherwise denies fever or chills, chest pain or shortness of breath. He is having some nausea. He denies dysuria or vomiting. February 07: This morning, the patient says he is feeling better, although he is still having pain. He was looking forward to having breakfast. However when I went back to his room later, he said the first few bites of breakfast made him really nauseated. He did receive nausea medications but continued to have enough nausea that he did not feel like he could eat much. He otherwise denies fever or chills, chest pain or shortness of breath, dysuria. - Constitutional Vitals: Vital Signs Temp Pulse Resp BP Pulse Ox 98.6 F 56 L 16 136/77 93 02/07/17 15:30 02/07/17 07:15 02/07/17 15:30 02/07/17 15:30 02/07/17 15:30 Period Temp Pulse Resp BP Sys/Choi Pulse Ox Last 24 Hr 98 F-98.8 F 53-56 12-16 102-136/61-82 93-100 Intake and Output 02/07/17 02/07/17 02/07/17 05:59 13:59 21:59 Intake Total 1044 / 1044 Output Total 850 / 850 1200 / 1200 600 / 600 Balance 194 / 194 -1200 / -1200 -600 / -600 Intake & Output: Intake & Output 02/07/17 02/07/17 02/07/17 05:59 13:59 21:59 Intake Total 1044 / 1044 Output Total 850 / 850 1200 / 1200 600 / 600 Balance 194 / 194 -1200 / -1200 -600 / -600 Intake: IV 944 / 944 Dextrose 5%-1/2Ns W/40Meq 944 / 944 KCl 1,000 ml @ 125 mls/ hr IV Q8H [facility] Rx#: [id number] Oral 100 / 100 Output: Void Amount 850 / 850 800 / 800 600 / 600 Emesis 400 / 400 Other: Meal Lunch Percent of Meal Consumed Refused # Voids 3 Neck is supple without obvious JVD or lymphadenopathy. Cardiac exam shows regular rate and rhythm. Lungs are clear to auscultation. Abdomen: Is soft, but diffusely, mildly, tender, without guarding or rebound. Bowel sounds are active. Extremities show no edema. Neurologic exam is grossly nonfocal. Medical - PN: Obj Da - Labs CBC & Chem 7: 02/07/17 03:38 02/07/17 03:38 Labs: Abnormal Lab Results 02/07/17 02/07/17 02/06/17 08:10 03:38 04:40 [place] # (Auto) 1.0 H BUN 4 L Glucose 106 H Phosphorus AST 70 H ALT 115 H Globulin 1.7 L Albumin/Globulin Ratio 2.6 H Lipase 150 H 02/06/17 04:40 [place] # (Auto) BUN 4 L Glucose 138 H Phosphorus 2.1 L AST ALT Globulin 1.8 L Albumin/Globulin Ratio Lipase February 07: Screen for hepatitis A, B, C is negative. February 05: Urinalysis shows 30 mg of protein, 80 ketones, many amorphous crystals Abdominal x-ray was read as normal. Meds: Medications Acetaminophen (Tylenol) 650 mg PO Q6HP PRN PRN Reason: PAIN/FEVER > 101 Last Admin: 02/07/17 04:03 Dose: 650 mg Dicyclomine HCl (Dicyclomine) 10 mg PO QID [facility] Last Admin: 02/07/17 17:45 Dose: 10 mg Potassium Chloride/Dextrose/Sod Cl (Dextrose 5%-1/2ns W/40meq Kcl) 1,000 mls @ 125 mls/hr IV Q8H [facility] Last Admin: 02/07/17 15:58 Dose: Not Given Metoclopramide HCl (Reglan) 5 mg IV ACHS [facility] Last Admin: 02/07/17 17:45 Dose: 5 mg Morphine Sulfate (Morphine) 2 mg IV Q4HP PRN PRN Reason: Pain Last Admin: 02/07/17 17:49 Dose: 2 mg Naloxone HCl (Narcan) 0.1 mg IV Q2MIN PRN PRN Reason: Opiate Reversal Nicotine (Nicoderm) 7 mg TOPICAL DAILY@1000 [facility] Last Admin: 02/07/17 10:13 Dose: Not Given Ondansetron HCl (Zofran) 4 mg IV Q4HP PRN PRN Reason: Nausea And Vomiting Last Admin: 02/07/17 20:02 Dose: 4 mg Pantoprazole Sodium (Protonix) 40 mg IV QAMAC [facility] Last Admin: 02/07/17 07:16 Dose: 40 mg Promethazine HCl (Phenergan) 12.5 mg IV Q6HP PRN PRN Reason: Nausea And Vomiting Last Admin: 02/07/17 12:41 Dose: 12.5 mg Sodium Chloride (Saline Flush) 10 ml IV Q8 [facility] Last Admin: 02/07/17 14:22 Dose: Not Given Medical - PN: A/P - Time Spent With Patient Total time spent is greater than 50% in coordination of care (as documented) at patient's floor/unit and/or counseling patient: (1) Tetrahydrocannabinol (THC) use disorder, mild, abuse Status: Chronic Current Visit: Yes (2) Tobacco abuse Status: Chronic Current Visit: Yes (3) Hypokalemia, gastrointestinal losses Status: Acute Current Visit: Yes (4) Gastroparesis Status: Chronic Current Visit: No (5) Acute gastritis Status: Chronic Current Visit: No (6) Intractable nausea and vomiting Status: Acute Current Visit: Yes - Narrative A/P Narrative: #1. GI. This patient presents to the emergency room for the fourth time in 3 days, for intractable nausea and vomiting. He just cannot hold anything down. He has known gastroparesis, and was recently diagnosed with significant gastritis as well. He is at high risk for dehydration. -Records are obtained from [facility] today and reviewed. He was seen there in September for nausea and vomiting. CT of the abdomen done on September 24, showed no acute abnormality, other than questionable thickening in the urinary bladder. He was thought at that time to possibly have pancreatitis, although the pancreas looks normal on the CT. He also had a nuclear HIDA scan, and that was read as normal. -The patient was feeling better this morning, and we had up to send him home, but he just does not feel well enough to eat or drink today, so we will continue with IV fluids and IV nausea and pain medications as needed. Diet is slowly being advanced. He tells me he did have several studies done over at [facility], including abdominal CT, as well as several visits with Dr. Rosen, and upper endoscopy, all pointing to his current diagnosis of gastroparesis. -IV Zofran, Reglan, Phenergan as needed. Consider IV Ativan for nausea, if there is also a component of anxiety. -Consider cannabis hyperemesis syndrome. We discussed this, and he seems willing to consider staying away from marijuana for the time being, to see if this is contributing to his hyperemesis syndrome. -Our protective services case worker will try to get him an appointment with GI after discharge. 2. Renal. Hypokalemia, likely due to vomiting. Resolved. 3. CODE STATUS: Full code 4. History of both tobacco and marijuana use. -NicoDerm patch. -We discussed cannabis hyperemesis syndrome, and the patient says he will consider stopping marijuana to see if that is helpful. 5. DVT prophylaxis: Patient should be low risk, and should continue to ambulate in his room. #6. Fever. Patient presented with mildly elevated temperature and white blood cell count. These have resolved. Approximately 30 minutes was spent today, interviewing and examining the patient , reviewing his old records, reviewing plan of care with staff, and writing orders. Medical - PN: Qual - VTE Deep Vein Thrombosis/Pulmonary Embolism Present on Admission: No
[2017-02-08] MEDS: 0.9 % SODIUM CHLORIDE 10 ML SYRINGE IV SCH ×2 (00:21→04:55)
[2017-02-08] MEDS: ONDANSETRON 4 MG/2 ML VIAL IV PRN (04:55)
[2017-02-08] MEDS: DEXTROSE 5%-1/2NS W/40MEQ KCL 1,000 ML IV SCH (06:14)
[2017-02-08] MEDS: PROMETHAZINE 25 MG/ML VIAL IV PRN (06:43)
[2017-02-08 08:38] LABS: ALT/SGPT 87 U/l (0-40); Albumin 4.5 gm/dL (3.2-5.2); Albumin/Globulin Ratio 2.4 (1.0-2.3); Alkaline Phosphatase 48 U/L (39-117); Bilirubin,Direct < 0.2 mg/dL (0.0-0.3); Blood Urea Nitrogen 6 mg/dl (6-20); Gamma Glutamyl Transpeptidase 41 U/L (8-61); Magnesium 1.8 mg/dL (1.6-2.5); Uric Acid 3.1 mg/dL (2.5-8.0)
[2017-02-08] MEDS: METOCLOPRAMIDE 10 MG/2 ML VIAL IV SCH ×2 (10:16→12:46)
[2017-02-08] MEDS: PANTOPRAZOLE 40 MG VIAL IV SCH (10:16)
[2017-02-08] MEDS: NICOTINE 7 MG PATCH TOPICAL SCH (10:17)
--- NOTE | 2017-02-08 11:22 | Discharge Summary ---
Medical - DS: Prov Patient information: Note initiated : 02/08/17 at 11:22 am Service Date, if different from initiated Date: [] Patient: Pranav Gutierrez 31 y/o M admitted on 02/05/17 for Abd Pain, Intractable Nausea and Vomiting. Chief Complaint: [] Date of admission: 02/05/17 15:27 Discharge date: 02/08/17 Primary care physician: None. Patient was set up for an appointment with Gloria Walsh, nurse practitioner , at the [facility] clinic. Admitting clinician: Ping Singleton Attending physician on discharge: Ping Singleton Medical - DS: Meds - Discharge Medications Prescriptions: Nicotine [Nicoderm] 7 mg TOPICAL DAILY@1000 #14 patch Promethazine [Phenergan] 12.5 mg PO TIDAC PRN #60 tablet PRN Reason: Nausea Active and Home Medications: Home Medications dicyclomine 10 mg capsule 10 mg PO QID #120 cap 01/10/17 [Rx Confirmed 02/05/17 Last Taken 02/02/17] hydrocodone 5 mg-acetaminophen 325 mg tablet 1 tab PO Q4HP PRN #90 tab 01/10/17 [Rx Confirmed 02/05/17 Last Taken 01/29/17] metoclopramide 10 mg tablet 10 mg PO .QACHS tab 01/10/17 [History Confirmed Last Taken 02/02/17] omeprazole 20 mg capsule,delayed release 20 mg PO QDAY cap 01/10/17 [History Confirmed 02/05/17 Last Taken 02/02/17] pantoprazole 40 mg tablet,delayed release 40 mg PO QAM #30 tab 01/10/17 [Rx Confirmed 02/05/17 Last Taken 02/02/17] Ondansetron HCl [Zofran ODT] 4 mg SL Q4-6HP PRN #14 tablet 02/04/17 [Rx Confirmed 02/05/17 Last Taken 02/02/17] Medical - DS: Hosp Hospital course: Mr. Gutierrez is a 31 year old M February 05, 2017: History of present illness: Mr. Gutierrez is a 31 year old man. This patient has a history of gastroparesis and significant gastritis. He has been admitted several times for intractable nausea and vomiting. He tells me that the first severe episode he recalls was September last year. This week, he has had persistent nausea and vomiting for the last several days. He has come to the emergency room 4 times, and just has not been able to control his symptoms. He also reports abdominal pain which she rates as 8 out of 10. He does have Reglan and Zofran and dicyclomine and Protonix at home, as well as [place], but these did not seem to manage his symptoms. He does admit to smoking about 2 joints per day, which he uses both for recreation and to help with nausea. He has not been able to keep any food down for the last 3 days. When he vomits, mostly bilious fluid comes up. He has not seen any blood. His throat is been a little dry, but no significant pain. He denies fever chills, headaches or dizziness, new or ear symptoms, swollen glands, chest pain or palpitations, shortness of breath. He has not had a bowel movement in several days, but also has not eaten. He denies diarrhea or bright red blood per rectum, or dysuria. February 06: This morning, the patient is still feeling poorly. He reports continued abdominal pain, radiating into his back has continued nausea, although he had not vomited this morning. He did tolerate a full liquid diet last evening. He otherwise denies fever or chills, chest pain or shortness of breath. He is having some nausea. He denies dysuria or vomiting. February 07: This morning, the patient says he is feeling better, although he is still having pain. He was looking forward to having breakfast. However when I went back to his room later, he said the first few bites of breakfast made him really nauseated. He did receive nausea medications but continued to have enough nausea that he did not feel like he could eat much. He otherwise denies fever or chills, chest pain or shortness of breath, dysuria. February 08, 2017: Hospital course: The patient was not able to keep any thing much down yesterday, due to severe nausea and ongoing abdominal pain. This morning he felt more ready to try to eat. He did then eat a pretty good size breakfast, and held it down without vomiting. He continues to have mild abdominal pain, but it is better than yesterday. He would like to go home today. He believes the Phenergan really did help with his nausea, so requested an oral prescription for that to take before meals, when he is feeling nauseated. He also requested a NicoDerm patch, as I believe he is going to try to quit smoking. Otherwise, he denies fever chills, headaches or dizziness, chest pain or shortness of breath, symptoms. He is not having vomiting, diarrhea or constipation or bright red blood per rectum. exam: Neck is supple without obvious JVD or lymphadenopathy. Cardiac exam shows regular rate and rhythm. Lungs are clear to auscultation. Abdomen: Is soft, but diffusely, mildly, tender, without guarding or rebound. Bowel sounds are active. Extremities show no edema. Neurologic exam is grossly nonfocal. Assessment and plan: #1. GI. This patient presents to the emergency room for the fourth time in 3 days, for intractable nausea and vomiting. He just cannot hold anything down. He has known gastroparesis, and was recently diagnosed with significant gastritis as well. He is at high risk for dehydration. -Records are obtained from [facility] and reviewed. He was seen there in September for nausea and vomiting. CT of the abdomen done on September 24, showed no acute abnormality, other than questionable thickening in the urinary bladder. He was thought at that time to possibly have pancreatitis, although the pancreas looks normal on the CT. He also had a nuclear HIDA scan, and that was read as normal. -The patient was feeling better this morning, and did tolerate food, after a dose of Phenergan. He was given a prescription for oral Phenergan to take at home, although he is cautioned not to use it very often, due to risk of side effects. Diet is slowly being advanced. He tells me he did have several visits with Dr. Rosen, and upper endoscopy, all pointing to his current diagnosis of gastroparesis. -Consider cannabis hyperemesis syndrome. We discussed this, and he seems willing to consider staying away from marijuana for the time being, to see if this is contributing to his hyperemesis syndrome. -Our binder caser will try to get him an appointment with GI after discharge. 2. Renal. Hypokalemia, likely due to vomiting. Resolved. 3. CODE STATUS: Full code 4. History of both tobacco and marijuana use. -NicoDerm patch. -We discussed cannabis hyperemesis syndrome, and the patient says he will consider stopping marijuana to see if that is helpful. 5. DVT prophylaxis: Patient should be low risk, and should continue to ambulate in his room. #6. Fever. Patient presented with mildly elevated temperature and white blood cell count. These have resolved. Approximately 35 minutes was spent today, interviewing and examining the patient , reviewing test results, reviewing plan of care with nursing staff, and then touching base again later after his trial of food, and writing orders and prescriptions. Discharge diagnosis: Gastroparesis, with recurrent abdominal pain, nausea, vomiting. Possible c Secondary discharge diagnosis: Possible cannabis hyperemesis syndrome. Tobacco abuse - Time Spent with Patient Total time spent providing and/or coordinating discharge services: Greater than 30 minutes Medical - DS: Exam - Constitutional Vitals: Vital Signs Temp Pulse Resp BP Pulse Ox 02/08/17 06:20 98.5 F 16 117/78 99 02/08/17 04:00 98.8 F 61 16 118/76 96 02/07/17 23:40 98.9 F 60 16 129/84 98 02/07/17 20:00 99.0 F H 61 16 119/75 98 02/07/17 15:30 98.6 F 16 136/77 93 02/07/17 12:20 98.3 F 16 123/82 100 Intake and Output 02/07/17 02/08/17 02/08/17 21:59 05:59 13:59 Intake Total 500 / 500 1091 / 1091 Output Total 600 / 600 1000 / 1000 700 / 700 Balance -600 / -600 -500 / -500 391 / 391 Intake: IV 971 / 971 Dextrose 5%-1/2Ns W/40Meq 971 / 971 KCl 1,000 ml @ 125 mls/ hr IV Q8H [facility] Rx#: [id number] Oral 500 / 500 120 / 120 Output: Void Amount 600 / 600 1000 / 1000 700 / 700 Other: Meal Snack: Soup Breakfast Percent of Meal Consumed 100% 50% Feeding Ability Independent Independent # Voids 1 1 # Bowel Movements 1 # [place] 0 Weight 137 lb 4.8 oz Medical - DS: Data Labs on day of discharge: Labs from last 24 hours 02/08/17 05:00 Sodium 139 Potassium 4.2 Chloride 99 Carbon Dioxide 26 Anion Gap 14.0 BUN 6 Creatinine 0.9 GFR Calculation 112 Glucose 93 Uric Acid 3.1 Calcium 9.2 Phosphorus 4.3 Magnesium 1.8 Total Bilirubin 0.6 Direct Bilirubin < 0.2 GGT 41 AST 34 ALT 87 H Alkaline Phosphatase 48 Lactate Dehydrogenase 186 Total Protein 6.4 Albumin 4.5 Globulin 1.9 L Albumin/Globulin Ratio 2.4 H Triglycerides 90 -Records are obtained from [facility] and reviewed. He was seen there in September for nausea and vomiting. CT of the abdomen done on September 24, showed no acute abnormality, other than questionable thickening in the urinary bladder. He was thought at that time to possibly have pancreatitis, although the pancreas looks normal on the CT. He also had a nuclear HIDA scan, and that was read as normal. February 07: Screen for hepatitis A, B, C is negative. Chemistries: AST elevated at 70, ALT elevated at 115, globulin low at 1.7, lipase elevated at 150 February 06: CBC: White blood cell count 8.5 thousand, hemoglobin 15, hematocrit 44, platelets 182,000 February 05: Urinalysis shows 30 mg of protein, 80 ketones, many amorphous crystals Abdominal x-ray was read as normal. Medical - DS: A/P - Patient/Caregiver Discharge Instructions Activity: increase activity as tolerated Diet: Regular Diet Additional Instructions: 1. Gastroparesis, with nausea, vomiting, abdominal pain. Continue your home medications, including dicyclomine, omeprazole, Reglan/ metoclopramide. I have also given you a prescription for promethazine, which you can take before meals, if you have nausea. Please use this sparingly, as it can have some significant side effects if used long-term. Please keep the appointment that we set up for you with the GI specialist, to look into your symptoms further. We will also try to make you an appointment to see a new primary care provider. Please follow-up with them, so they can help coordinate your care going forward.. Please keep appointment with Gloria Walsh at the [facility] clinic, February 27, at 3: 00. The clinic is in [place], [place]. Please consider discontinuing the use of marijuana, as part of your symptoms may be due to cannabis hyperemesis syndrome. -Please follow a soft/bland diet for the next couple of days, until your stomach feels normal again. #2. Tobacco dependence. A NicoDerm prescription was written, but you can also buy this [id number]. Prescriptions: Nicotine [Nicoderm] 7 mg TOPICAL DAILY@1000 #14 patch Promethazine [Phenergan] 12.5 mg PO TIDAC PRN #60 tablet PRN Reason: Nausea - Problem Maintenance (1) Tetrahydrocannabinol (THC) use disorder, mild, abuse Status: Chronic (2) Tobacco abuse Status: Chronic (3) Hypokalemia, gastrointestinal losses Status: Acute (4) Gastroparesis Status: Chronic (5) Acute gastritis Status: Chronic (6) Intractable nausea and vomiting Status: Acute Qualifiers: - Follow up Plan Follow up with: Charles Cerda MD [Physician] - 02/28/17 (Keep your schedule appointment on February 28. Please call their office and confirm the time for this appointment. ) Gloria Walsh ARNP [Nurse Practitioner] - 02/27/17 3:00 pm Disposition: Home, Self-Care Prognosis: Good Rehab Potential: Good Overall status at discharge: patient is progressing back to baseline Medical - DS: Qual - VTE Deep Vein Thrombosis/Pulmonary Embolism Present on Admission: No
[2017-02-08] MEDS: DICYCLOMINE 20 MG TABLET PO SCH (12:16)
== END 2017-02-08 15:01 | disposition home or self-care (01) ==
LOC: ED 10:07 → MEDSUR 10:07
PROVIDERS: ADMIT Internal Medicine; ATTEND Internal Medicine

== ENCOUNTER 2018-11-07 08:57 | Observation (INO) ==
[2018-11-07] MEDS ORDERED: IOPAMIDOL 100 ML BOTTLE IV ONE (08:58)
[2018-11-07] MEDS ORDERED: PANTOPRAZOLE 40 MG VIAL IV ONE (09:51)
[2018-11-07] MEDS ORDERED: 0.9 % SODIUM CHLORIDE 2,000 ML IV ONE (09:51)
[2018-11-07] MEDS ORDERED: HYDROmorphone 2 MG/ML VIAL IV PRN (09:51)
[2018-11-07] MEDS ORDERED: KETOROLAC 30 MG/ML VIAL IV ONE (09:51)
[2018-11-07] MEDS ORDERED: METOCLOPRAMIDE 10 MG/2 ML VIAL IV ONE ×2 (09:51→12:02)
[2018-11-07] MEDS ORDERED: SUCRALFATE 1 GM TABLET PO ONE (09:52)
--- NOTE | 2018-11-07 09:56 | Emergency Department Note ---
General Adult HPI - General Chief complaint: Nausea/Vomiting/Diarrhea Stated complaint: Abdominal pain Time Seen by Provider: 11/07/18 09:45 Source: patient Mode of arrival: ambulatory Limitations: no limitations - History of Present Illness HPI Narrative: 33-year-old male comes in for 5-day history of nausea vomiting. Has not been able to hold anything down. He was seen yesterday here was diagnosed with gastroparesis which he carries a diagnosis of. This is intermittent and has been previously worked up but there is also the question of marijuana hyperemesis. His last marijuana smoke was 5 days ago as well. I reviewed yesterday's chart by Silvana FIGUEROA. He is having diffuse belly pain as well - Related Data Previous Rx's Medication Instructions Recorded Promethazine [Phenergan] 25 mg PO Q4-6HP PRN 3 Days #15 tab 11/06/18 Allergies Allergy/AdvReac Type Severity Reaction Status Date / Time No Known Allergies Allergy Unknown Unknown Verified 11/07/18 09:00 Review of Systems All systems ED: reviewed and negative except as stated. Past Medical History - Past Medical History Attestation: Yes: The following information was validated with the patient. Medical history: Reports: other (pancreatitis, gastroparesis, depression, concern for hyperemesis syndrome) Psychiatric history: Reports: depression Surgical history ED: Reports: other (upper endoscopy) - Social History smoking status: Current every day smoker Alcohol use: Reports: Heavy (heavy in past states quit 18 months ago) Drug use: Reports: marijuana (weekly) Physical Exam Thin male resting. Appears very uncomfortable secondary to belly pain. Normocephalic atraumatic. Conjunctive are clear sclerae nonicteric. No nasal discharge or congestion. Oropharynx with dry buccal mucosa. Posterior pharynx is clear. Face with a few sore spots and erythema unclear cause. Neck is supple without lymphadenopathy or thyromegaly. Heart is regular rate and rhythm no murmur appreciated. Lungs are clear to auscultation bilaterally. No wheezes rales rhonchi or respiratory distress. Abdomen is soft very tender diffusely. Quiet bowel sounds. No pedal edema. +2 radial pulse. Alert and oriented Limitations: no limitations Course Vital Signs Temperature 97.8 F 11/07/18 08:57 Pulse Rate 57 L 11/07/18 08:57 Respiratory Rate 18 11/07/18 08:57 Blood Pressure 160/97 11/07/18 08:57 Pulse Oximetry (%) 97 11/07/18 08:57 Temperature 99.5 F H 11/07/18 19:33 Pulse Rate 68 11/07/18 19:33 Respiratory Rate 16 11/07/18 19:33 Blood Pressure 123/75 11/07/18 19:33 Pulse Oximetry (%) 98 11/07/18 19:33 Medical Decision Making - Lab Data Lab results reviewed: Yes I reviewed the patient's lab results. Result diagrams: 11/07/18 10:00 11/07/18 10:00 Lab Results 11/07/18 11/07/18 11/07/18 Range/Units 10:00 10:00 10:00 WBC 14.6 H (4.5-11.0) K/mcL RBC 5.71 (4.50-5.90) M/mcL Hgb 16.6 H (13.5-16.5) g/dL Hct 51.2 (41.0-55.0) % MCV 89.7 (80.0-100.0) fL MCH 29.2 (26.0-34.0) pg MCHC 32.5 (31.0-36.0) g/dL RDW 13.8 (11.5-14.5) % Plt Count 251 (140-440) K/mcL MPV 9.4 (7.4-10.4) fL Gran % 80.5 H (38.0-78.0) % Lymph % (Auto) 11.5 L (15.5-49.0) % [place] % (Auto) 7.1 (1.0-12.0) % Eos % (Auto) 0.7 (0.0-7.0) % Baso % (Auto) 0.2 (0.0-2.0) % Gran # 11.8 H (1.8-8.0) K/mcL Lymph # (Auto) 1.7 (1.5-4.8) K/mcL [place] # (Auto) 1.0 H (0.1-0.9) K/mcL Eos # (Auto) 0.1 (0.0-0.7) K/mcL Baso # (Auto) 0 (0.0-0.3) K/mcL VBG Lactic Acid 1.5 (0.5-2.0) mmol/L Sodium 141 (133-145) mmol/L Potassium 4.0 (3.3-5.1) mmol/L Chloride 103 (96-108) mmol/L Carbon Dioxide 26 (22-30) mmol/L Anion Gap 12.0 (8-16) BUN 12 (6-20) mg/dl Creatinine 0.9 (0.7-1.2) mg/dl GFR Calculation 110 Glucose 110 H (70-105) mg/dL Calcium 9.1 (8.6-10.4) mg/dl Magnesium 2.0 (1.6-2.5) mg/dL Total Bilirubin 0.7 (0.0-1.0) mg/dL AST 18 (0-37) U/l ALT 15 (0-40) U/l Alkaline Phosphatase 65 (39-117) U/L Total Protein 7.1 (5.9-8.4) gm/dL Albumin 4.7 (3.2-5.2) gm/dL Globulin 2.4 (2.2-3.7) gm/dL Albumin/Globulin Ratio 2.0 (1.0-2.3) Amylase 150 H (28-100) U/L Lipase 167 H (7-60) U/L - Radiology Data Radiology results reviewed: Yes I reviewed the patient's radiology results. CT scan of the abdomen pelvis is read as negative for acute cause of nausea and vomiting Disposition Pt seen by [employer] SUPERVISOR/PA only: No Clinical Impression: Gastroparesis Intractable nausea and vomiting Qualifiers: Vomiting type: unspecified Qualified Code(s): R11.2 - Nausea with vomiting, unspecified Pancreatitis Qualifiers: Chronicity: acute Pancreatitis type: unspecified pancreatitis type Acute pancreatitis complication: unspecified Qualified Code(s): K85.90 - Acute pancreatitis without necrosis or infection, unspecified Summary: After interview and exam ordered workup with laboratory and x-ray. Treatment ordered with IV fluids Reglan for nausea and gastroparesis and Dilaudid for pain. Also order Protonix and Carafate on the chance that this may be related to more of a gastritis type picture After he started feeling a little better we gave him a trial of oral water. He did have a small episode of emesis with that however. He was not feeling much improved despite getting IV fluids and medicine noted above. Wrote for repeat dose of Reglan. Discussed with Dr. Hogan, our hospitalist, who recommended CT scan to make sure were not missing anything. CT scan of the abdomen pelvis with contrast was negative. Hospitalist to admit Disposition: Xfer As Inpt ([facility]) Condition: Fair
[2018-11-07] MEDS ORDERED: SUCRALFATE 1 GM/10 ML ORAL.SUSP ONE (10:00)
[2018-11-07] MEDS ORDERED: SUCRALFATE 1 GM/10 ML ORAL.SUSP PO ONE (10:06)
--- NOTE | 2018-11-07 10:34 | XRay Report ---
CLINICAL INFORMATION: Vomiting. Abdominal pain. History of gastric peristalsis TECHNIQUE: Supine and upright abdomen COMPARISON: Previous plain film examinations dated 08/16/2018, 05/22/2018, 02/13/2017 FINDINGS: Bowel gas pattern is unremarkable. No evidence for mechanical small bowel obstruction. No small bowel dilatation. Colon appears normal without evidence for significant constipation. No gaseous gastric distention. There is no pneumoperitoneum. No biliary or portal venous gas. No pneumatosis. IMPRESSION: 1. Negative abdomen 2. No interval change Interpreted and Authenticated by: Parminder Hopkins 11/07/18
[2018-11-07 10:36] LABS: Basophils # (Auto) 0 K/mcL (0.0-0.3); Basophils % (Auto) 0.2 % (0.0-2.0); Eosinophils # (Auto) 0.1 K/mcL (0.0-0.7); Eosinophils % (Auto) 0.7 % (0.0-7.0); Granulocytes % (Auto) 80.5 % (38.0-78.0); Lymphocytes # (Auto) 1.7 K/mcL (1.5-4.8); Lymphocytes % (Auto) 11.5 % (15.5-49.0); Mean Cell Volume 89.7 fL (80.0-100.0); Mean Corpuscular HGB Conc 32.5 g/dL (31.0-36.0); Monocytes % (Auto) 7.1 % (1.0-12.0); Platelet Count 251 K/mcL (140-440); RBC 5.71 M/mcL (4.50-5.90); Red Cell Distribution Width 13.8 % (11.5-14.5)
[2018-11-07 10:48] LABS: ALT/SGPT 15 U/l (0-40); Albumin 4.7 gm/dL (3.2-5.2); Alkaline Phosphatase 65 U/L (39-117); Amylase 150 U/L (28-100); Blood Urea Nitrogen 12 mg/dl (6-20); Lipase 167 U/L (7-60)
[2018-11-07] MEDS ORDERED: CAPSAICIN 0.025% CREAM.TOP 60GM TOPICAL PRN ×2 (11:56→14:00)
[2018-11-07] MEDS ORDERED: diphenhydrAMINE 50 MG/ML VIAL IV ONE (12:29)
--- NOTE | 2018-11-07 13:16 | Cat Scan Report ---
CLINICAL INFORMATION: Abdominal pain COMPARISON: Plain film examination dated 11/07/2018 TECHNIQUE: Axial images were obtained through the abdomen and pelvis. Sagittally and coronally reformatted images. 80 mL contrast material injected intravenously. Oral contrast material was not given FINDINGS: Lung bases are negative. No parenchymal infiltrate or mass. No pleural fluid. No pericardial fluid. There is an 11 mm low density lesion in the right lobe of the liver. Appearance is system with a benign cyst. No solid mass identified. Liver contour is smooth. There is no ascites. Gallbladder is present. There are no calcified gallstones. No dilated bile ducts. Negative pancreas. No pancreatic mass. No peripancreatic abnormality. Spleen is negative. No splenomegaly. No enhancement splenic and portal veins. Adrenal glands are negative. Kidneys are negative. No solid or cystic mass. No hydronephrosis. Colon is negative. No diverticulosis. No diverticulitis. Appendix is negative. No colonic mass identified. There is no mechanical small bowel obstruction. No intra-abdominal abscess. No pneumoperitoneum. No biliary or portal venous gas. No pneumatosis. There is no pathologic retroperitoneal or mesenteric lymphadenopathy. Lumbar spine, sacrum, pelvis are negative. IMPRESSION: Negative CT scan of the abdomen and pelvis The exam was performed using radiation dose optimization techniques including, but not limited to, automated exposure control, adjustment of the mA and/or kV according to patient size and use of iterative reconstruction technique. Interpreted and Authenticated by: Parminder Hopkins 11/07/18
--- NOTE | 2018-11-07 13:47 | Internal Med History&Physical ---
Medical - H&P: [facility] Patient information: Note initiated : 11/07/18 at 1:44 pm Service Date, if different from initiated Date: [] Patient: Pranav Gutierrez a 33 y/o M admitted on for Abdominal pain. Chief Complaint: [] History of present illness: Mr. Gutierrez is a 33 year old M Presents to the ED for the second time in less than 24 hours with nausea vomiting, intractable. He has a history of gastroparesis and marijuana use. Last use of marijuana was 4 days ago. He does not adhere to any particular diet for his gastroparesis. Gastroparesis was diagnosed in 2017 per gastric emptying study. Seems to be idiopathic as there is no distinct etiology to determine the cause his gastroparesis. Nausea vomiting is been occurring since Saturday. He has been unable to keep much food or liquid down. Nothing particularly makes it better. But what makes it worse is fatty foods. He has diffuse abdominal achiness. Nausea seems to be worse in the morning he says. CT abdomen pelvis in the ED was unremarkable. In the ED they were unable to get his nausea vomiting under control and thus requested admission for intractable nausea vomiting. Patient denies any chest pain coughing shortness of breath. No diarrhea. No fevers or chills. Review of Systems: Pertinent positives as above. Denies headache/fever/chill/chest or abdominal pain/cough/dyspnea/diarrhea. Remaining 10 point review of systems reviewed negative Medical - H&P: PMH Medical history: Medical History (Last Reviewed 01/10/17 @ 11:54 by Edy Rosen MD) Pancreatitis (Acute) Gastroparesis (Chronic) Acute gastritis (Chronic) Depression (Chronic) Abdominal pain (Acute) Past Surgical History (Last Reviewed 01/10/17 @ 11:54 by Edy Rosen MD) No pertinent past surgical history (Chronic) Family History (Last Reviewed 01/10/17 @ 11:54 by Edy Rosen MD) Family/Other Cancer Grandfather Esophageal cancer Other Heart disease Social History (Last Reviewed 01/10/17 @ 11:54 by Edy Rosen MD) Patient smokes half pack per day Drinks alcohol rarely Uses marijuana daily Works at [employer] Medical - H&P: Meds Home Medications Medication Instructions Recorded Confirmed Type Promethazine [Phenergan] 25 mg PO Q4-6HP PRN 3 Days #15 tab 03/28/19 Rx Allergies Allergy/AdvReac Type Severity Reaction Status Date / Time No Known Allergies Allergy Unknown Unknown Verified 11/07/18 09:00 Medical - H&P: Exam - Constitutional Vitals: Temp Pulse Resp BP Pulse Ox 97.8 F 57 L 18 160/97 97 11/07/18 08:57 11/07/18 08:57 11/07/18 08:57 11/07/18 08:57 11/07/18 08:57 Exam: General: Alert, Awake, No acute Distress Eyes/N/T: EOMI, PEERL, DMM Head/Neck: neck supple, normocephalic atraumatic CV: RRR, No murmurs, normal s1/s2 Pulm: Clear b/l, no wheezing/rhonchi/rales Abd: soft, nontender, +BS x4 Ext: no clubbing/cyanosis/edema Neuro: Alert, no focal deficits, moves all extremities, CN 2-12 grossly intact, symmetrical strength b/l upper/lower, sensations intact b/l upper/lower Skin: warm/dry Medical - H&P: Reslt - Labs CBC & Chem 7: 11/07/18 10:00 11/07/18 10:00 Labs: Short CBC 11/07/18 Range/Units 10:00 WBC 14.6 H (4.5-11.0) K/mcL Hgb 16.6 H (13.5-16.5) g/dL Hct 51.2 (41.0-55.0) % Plt Count 251 (140-440) K/mcL BMP 11/07/18 10:00 Sodium 141 Potassium 4.0 Chloride 103 Carbon Dioxide 26 BUN 12 Creatinine 0.9 Glucose 110 H Calcium 9.1 Liver Function 11/07/18 Range/Units 10:00 Total Bilirubin 0.7 (0.0-1.0) mg/dL AST 18 (0-37) U/l ALT 15 (0-40) U/l Alkaline Phosphatase 65 (39-117) U/L Albumin 4.7 (3.2-5.2) gm/dL Medical - H&P: A/P - Narrative A/P Narrative: A: *Intractable nausea vomitin/2 gastroparesis dietary noncompliance, possible hyperemesis syndrome with marijuana although he has not used it for 4 days and that should have resolved by now if it was purely from this condition. *Gastroparesis: As above, does not adhere to gastroparesis diet -Idiopathic *Daily marijuana use: Has not used since feeling ill 4 days prior to admission *Depression/anxiety: Not on any home medications *Tobacco abuse * P: -IV fluids -Clear liquids, advance as tolerated to low-fat soluble diet small frequent meals -Antiemetics including Benadryl and -prn ativan -Reglan - -Smoking cessation counseling -ppx: Lovenox
[2018-11-07] MEDS ORDERED: ONDANSETRON 4 MG/2 ML VIAL IV PRN (14:00)
[2018-11-07] MEDS ORDERED: PROCHLORPERAZINE 10 MG/2 ML VIAL IV PRN (14:00)
[2018-11-07] MEDS ORDERED: diphenhydrAMINE 50 MG/ML VIAL IV PRN (14:00)
[2018-11-07] MEDS ORDERED: PROMETHAZINE 25 MG/ML VIAL IV PRN (14:00)
[2018-11-07] MEDS ORDERED: 0.9 % SODIUM CHLORIDE 1,000 ML IV SCH (14:00)
[2018-11-07] MEDS ORDERED: CALCIUM CARBONATE 500 MG TAB.CHEW CHEWED PRN (14:00)
[2018-11-07] MEDS: 0.9 % SODIUM CHLORIDE 10 ML SYRINGE IV SCH ×2 (14:12→21:18)
[2018-11-07] MEDS: ACETAMINOPHEN 325 MG TABLET PO PRN ×2 (15:10→21:18)
[2018-11-07] MEDS: LORazepam 2 MG/ML VIAL IV PRN ×2 (15:10→21:17)
[2018-11-07] MEDS: METOCLOPRAMIDE 10 MG/2 ML VIAL IV SCH ×2 (18:09→21:07)
[2018-11-07] MEDS: FAMOTIDINE 20 MG TABLET PO SCH (21:08)
[2018-11-08] MEDS: ACETAMINOPHEN 325 MG TABLET PO PRN (05:06)
[2018-11-08 05:48] LABS: Basophils # (Auto) 0 K/mcL (0.0-0.3); Basophils % (Auto) 0.3 % (0.0-2.0); Eosinophils # (Auto) 0.1 K/mcL (0.0-0.7); Eosinophils % (Auto) 0.9 % (0.0-7.0); Granulocytes % (Auto) 61.3 % (38.0-78.0); Lymphocytes # (Auto) 2.3 K/mcL (1.5-4.8); Lymphocytes % (Auto) 27.5 % (15.5-49.0); Mean Cell Volume 90.6 fL (80.0-100.0); Mean Corpuscular HGB Conc 32.6 g/dL (31.0-36.0); Monocytes # (Auto) 0.8 K/mcL (0.1-0.9); Platelet Count 212 K/mcL (140-440); Red Cell Distribution Width 13.7 % (11.5-14.5)
[2018-11-08 06:14] LABS: ALT/SGPT 11 U/l (0-40); Albumin 3.8 gm/dL (3.2-5.2); Albumin/Globulin Ratio 2.1 (1.0-2.3); Alkaline Phosphatase 55 U/L (39-117); Bilirubin,Direct < 0.2 mg/dL (0.0-0.3); Blood Urea Nitrogen 6 mg/dl (6-20); Gamma Glutamyl Transpeptidase 17 U/L (8-61); Uric Acid 3.2 mg/dL (2.5-8.0)
[2018-11-08] MEDS: 0.9 % SODIUM CHLORIDE 10 ML SYRINGE IV SCH (06:27)
[2018-11-08] MEDS: FAMOTIDINE 20 MG TABLET PO SCH (07:32)
[2018-11-08] MEDS: METOCLOPRAMIDE 10 MG/2 ML VIAL IV SCH (07:32)
--- NOTE | 2018-11-08 07:51 | Discharge Summary ---
Medical - DS: Prov Patient information: Note initiated : 11/08/18 at 7:49 am Service Date, if different from initiated Date: [] Patient: Pranav Gutierrez 33 y/o M admitted on 11/07/18 for Abdominal pain. Chief Complaint: [] Date of admission: 11/07/18 13:55 Discharge date: 11/08/18 Primary care physician: PCP No Consults: 11/07/18 12:13 Consult to Physician [CONS] Stat Comment: Consulting Provider: Ralph Hogan Reason For Exam: Physician to Consult Medical - DS: Meds - Discharge Medications Prescriptions: Ondansetron [Zofran ODT] 4 mg SL Q4-6HP PRN #40 tab PRN Reason: nausea Active and Home Medications: Home Medications Promethazine [Phenergan] 25 mg PO Q4-6HP PRN 3 Days #15 tab 11/06/18 [Rx Confirmed 11/07/18 Last Taken Unknown] Home Medications Promethazine [Phenergan] 25 mg PO Q4-6HP PRN 3 Days #15 tab 11/06/18 [Rx Confirmed 11/07/18 Last Taken Unknown] Ondansetron [Zofran ODT] 4 mg SL Q4-6HP PRN #40 tab 11/08/18 [Rx Last Taken Unknown] Medical - DS: Hosp Hospital course: Mr. Gutierrez is a 33 year old M Mr. Gutierrez is a 33 year old M Presents to the ED for the second time in less than 24 hours with nausea vomiting, intractable. He has a history of gastroparesis and marijuana use. Last use of marijuana was 4 days ago. He does not adhere to any particular diet for his gastroparesis. Gastroparesis was diagnosed in 2017 per gastric emptying study. Seems to be idiopathic as there is no distinct etiology to determine the cause his gastroparesis. Nausea vomiting is been occurring since Saturday. He has been unable to keep much food or liquid down. Nothing particularly makes it better. But what makes it worse is fatty foods. He has diffuse abdominal achiness. Nausea seems to be worse in the morning he says. CT abdomen pelvis in the ED was unremarkable. In the ED they were unable to get his nausea vomiting under control and thus requested admission for intractable nausea vomiting. Patient denies any chest pain coughing shortness of breath. No diarrhea. No fevers or chills. 11/08 Much better. No nausea vomiting overnight. Stable for discharge. Counseled him on appropriate gastroparesis diet and holding off marijuana for now. Discharge diagnosis: Intractable nausea vomiting gastroparesis - Time Spent with Patient Total time spent providing and/or coordinating discharge services: Greater than 30 minutes Medical - DS: Exam - Constitutional Vitals: Vital Signs Temp Pulse Pulse Resp BP BP Pulse Ox 11/08/18 05:00 98.3 F 59 L 12 107/70 95 11/07/18 22:53 98.8 F 52 L 14 100/62 95 11/07/18 19:33 99.5 F H 68 16 123/75 98 11/07/18 16:23 109/64 11/07/18 15:10 98.7 F 51 L 18 160/95 100 11/07/18 14:17 98.7 F 18 160/95 100 11/07/18 14:03 97.8 F 57 L 18 160/97 97 11/07/18 13:55 68 18 109/64 96 11/07/18 08:57 97.8 F 57 L 18 160/97 97 Intake and Output 11/07/18 11/08/18 11/08/18 21:59 05:59 13:59 Intake Total 2360 1900 Balance 2360 1900 Intake: IV 2000 1000 Sodium Chloride 0.9% 1,000 ml @ 2000 1000 84 mls/hr IV .[id number] [facility] Rx#: [id number] Oral 360 900 Other: # Voids 5 Weight 58.967 kg Medical - DS: Data Labs on day of discharge: Labs from last 24 hours 11/08/18 11/08/18 11/07/18 04:12 04:12 10:00 WBC 8.3 RBC 4.80 Hgb 14.2 Hct 43.5 MCV 90.6 MCH 29.5 MCHC 32.6 RDW 13.7 Plt Count 212 MPV 9.5 Gran % 61.3 Lymph % (Auto) 27.5 Clark % (Auto) 10.0 Eos % (Auto) 0.9 Baso % (Auto) 0.3 Gran # 5.1 Lymph # (Auto) 2.3 Clark # (Auto) 0.8 Eos # (Auto) 0.1 Baso # (Auto) 0 VBG Lactic Acid 1.5 Sodium 140 Potassium 3.9 Chloride 104 Carbon Dioxide 25 Anion Gap 11.0 BUN 6 Creatinine 0.9 GFR Calculation 110 Glucose 90 Uric Acid 3.2 Calcium 8.6 Phosphorus 2.6 L Magnesium 1.8 Total Bilirubin 0.8 Direct Bilirubin < 0.2 GGT 17 AST 13 ALT 11 Alkaline Phosphatase 55 Lactate Dehydrogenase 147 Total Protein 5.6 L Albumin 3.8 Globulin 1.8 L Albumin/Globulin Ratio 2.1 Triglycerides 78 Amylase Lipase 11/07/18 11/07/18 10:00 10:00 WBC 14.6 H RBC 5.71 Hgb 16.6 H Hct 51.2 MCV 89.7 MCH 29.2 MCHC 32.5 RDW 13.8 Plt Count 251 MPV 9.4 Gran % 80.5 H Lymph % (Auto) 11.5 L Clark % (Auto) 7.1 Eos % (Auto) 0.7 Baso % (Auto) 0.2 Gran # 11.8 H Lymph # (Auto) 1.7 Clark # (Auto) 1.0 H Eos # (Auto) 0.1 Baso # (Auto) 0 VBG Lactic Acid Sodium 141 Potassium 4.0 Chloride 103 Carbon Dioxide 26 Anion Gap 12.0 BUN 12 Creatinine 0.9 GFR Calculation 110 Glucose 110 H Uric Acid Calcium 9.1 Phosphorus Magnesium 2.0 Total Bilirubin 0.7 Direct Bilirubin GGT AST 18 ALT 15 Alkaline Phosphatase 65 Lactate Dehydrogenase Total Protein 7.1 Albumin 4.7 Globulin 2.4 Albumin/Globulin Ratio 2.0 Triglycerides Amylase 150 H Lipase 167 H Medical - DS: A/P - Patient/Caregiver Discharge Instructions Activity: increase activity as tolerated Diet: Low Fat (Small frequent meals. Soluble fiber only. ) Additional Instructions: Stop smoking. And stop using marijuana for now. - Follow up Plan Follow up with: Gretta,PCP [Primary Care Provider] - Disposition: Home, Self-Care Prognosis: Fair Rehab Potential: Fair Medical - DS: Qual - VTE Deep Vein Thrombosis/Pulmonary Embolism Present on Admission: No
[2018-11-08] MEDS ORDERED: ENOXAPARIN 40 MG/0.4 ML SYRINGE SQ SCH (09:00)
== END 2018-11-08 09:40 | disposition home or self-care (01) ==
LOC: MEDSUR 08:57 → ED 08:57 → MEDSUR 13:55
PROVIDERS: ADMIT Internal Medicine; ATTEND Internal Medicine